=== PATIENT | male | born 1990 | race African-American/Black ===

== ENCOUNTER 2017-08-16 18:19 | Emergency (ER) | payer MEDICAID ==
[~2017-08-16] VITALS: Ht 167.6 cm; Wt 75.0 kg
[2017-08-16 20:06] VITALS: BP 104/57
== END 2017-08-16 23:50 | disposition left against medical advice (07) ==
LOC: ER 23:48
DX: Z76.0 Encounter for issue of repeat prescription (principal); Z53.21 Procedure and treatment not carried out due to patient leaving prior to being seen by health care provider
CPT/HCPCS: A4315